=== PATIENT | female | born 1995 | race Caucasian/White ===

== ENCOUNTER 2022-03-31 11:10 | Emergency (ER) | payer OTHER, SELFPAY ==
[2022-03-31 11:37] VITALS: BP 112/76; PULSE 85; RESP 18; TEMP 36.8; O2SAT 100; BMI 21.0
--- NOTE | 2022-03-31 12:10 | ED.CHESTPAIN ---
HPI - Chest Pain General Date Seen: 03/31/22 Chief Complaint: Chest Pain Stated Complaint: Chest pain/left arm pain/shortness of breath Time Seen by Provider: 03/31/22 11:19 Source: patient Mode of arrival: ambulatory Limitations: no limitations History of Present Illness HPI narrative: 26-year-old female presents here to the emergency room for evaluation of chest pain. The chest pain is left-sided, it has been for 3 weeks, intermittent to continuous, made worse by sitting still, not made worse by movement or exercising. She notices it radiates to her left arm, to her elbow. Not associated with shortness of breath, no nausea, no vomiting. Correlates with her starting her new job at [employer], and also stopping her Effexor because she could no for this. No history is of falls trauma, no vomiting, no cough, no fevers chills or other issues. Has not really tried any medication for this, does have a known history of anxiety, and wonders if this is what is causing her issues. No history of illicit drug or alcohol use. Does vape, over the last couple years. No family history of premature coronary artery disease. Denies a history of contraceptive use, no history of . MD complaint: chest pain Onset (ago): week(s) Timing of current episode: episodic and constant Prior episodes: Yes Onset: during rest Pain location: left chest Pain radiation: left arm, left shoulder and left scapula Severity: moderate Quality: aching Relieving factors: movement Exacerbating factors: stress Treatment prior to arrival: none Risk Factors Coronary artery disease risk factors: none Thoracic aortic dissection risk factors: none Related Data On Oral Contraceptives: No Home Medications Medication Instructions Recorded Confirmed venlafaxine 75 mg tablet 75 mg PO DAILY 03/31/22 03/31/22 Previous Rx's Medication Instructions Recorded venlafaxine 150 mg 150 mg PO QAM #30 caps 03/31/22 capsule,extended release 24 hr (Effexor XR) venlafaxine 75 mg capsule,extended 75 mg PO QAM #30 caps 03/31/22 release 24 hr (Effexor XR) Allergies Allergy/AdvReac Type Severity Reaction Status Date / Time Penicillins Allergy Severe Anaphylaxis Verified 03/31/22 11:51 Sulfa (Sulfonamide Allergy Intermediate stomach Verified 03/31/22 11:51 Antibiotics) bleeding sertraline [From Zoloft] Allergy Mild sores on Verified 03/31/22 11:51 face Review of Systems Status of ROS Reports: 10 or more systems reviewed and unremarkable except as noted in History and below [facility] Medical History No significant past medical history Surgical History No significant past surgical history Social History Non-prescribed substance use: denies use Exam Narrative Exam Narrative: Patient appears in no apparent distress, nontoxic, pupils equal round reactive to light there is no scleral icterus redness, TMs are normal, oropharynx normal, neck is supple full range of motion without meningismus there is no lymphadenopathy anterior posterior chains, and there is 3-12, are normal Thyroid normal midline palpable, not enlarged, chest is clear bilaterally no wheezing crackles noted, heart sounds are normal, no clicks murmurs or gallops, abdomen is soft and scaphoid there is no guarding no past with no megaly moves all extremities independently well, negative for peripheral edema, negative for positive Homans sign, strength both proximal distal is normal common upper lower extremities, skin notes no rashes, and peripheral pulses are normal Const Vital Signs, click to edit/add: Vital Signs - 24 hr 03/31/22 11:37 03/31/22 13:46 03/31/22 14:32 Temperature 98.2 F Pulse Rate [Right Pulse Oximeter] 85 78 100 Respiratory Rate 18 16 16 Blood Pressure [Right Upper Arm] 112/76 135/90 H 127/86 Pulse Oximetry 100 96 Oxygen Delivery Method Room Air Room Air Documenting provider has reviewed patient's vital signs: yes Course Course Hospital Course: I discussed with her that her tests were all normal, her chest x-ray is normal are EKG was normal. This is very reassuring, we talked about the chest pain causes which with the here I think is more of a somatic/chest wall, I think we ruled out all the severe causes of her chest pain. This stress that she is under can cause chest pain, and I recommend she restart her Effexor common I will give her 30 day supply of the 225 mg per day. Follow-up with the primary care physician and I have named a couple of them on her discharge. I would recommend if she develops suicidal ideation, homicidal ideation that she return, she was comfortable with this. Vital Signs Vital signs: Initial Vital Signs Temperature 98.2 F 03/31/22 11:37 Temperature Source Temporal Artery Scan 03/31/22 11:37 Pulse Rate 85 03/31/22 11:37 Pulse Rhythm 03/31/22 11:37 Respiratory Rate 18 03/31/22 11:37 Blood Pressure 112/76 03/31/22 11:37 Blood Pressure Mean 88 03/31/22 11:37 Blood Pressure Position Sitting 03/31/22 11:37 Pulse Oximetry 100 03/31/22 11:37 Oxygen Delivery Method 03/31/22 11:37 Vital Signs Temperature 98.2 F 03/31/22 11:37 Pulse Rate 85 03/31/22 11:37 Respiratory Rate 18 03/31/22 11:37 Blood Pressure 112/76 03/31/22 11:37 Pulse Oximetry 100 03/31/22 11:37 Oxygen Delivery Method 03/31/22 11:37 Temperature 98.2 F 03/31/22 11:37 Pulse Rate 100 03/31/22 14:32 Respiratory Rate 16 03/31/22 14:32 Blood Pressure 127/86 03/31/22 14:32 Pulse Oximetry 96 03/31/22 14:32 Oxygen Delivery Method 03/31/22 14:32 MDM - Chest Pain MDM Narrative Medical decision making narrative: During the evaluation of this patient I considered multiple differential diagnosis is. The life-threatening differential diagnosis include coronary disease/VT, pulmonary embolism, pneumothorax, pneumonia, and aortic dissection. Other differential diagnosis included but were not limited to pericarditis, myocarditis, chest wall pain, GERD, esophageal rupture, rib fracture contusion, pleurisy, as well as other etiologies. Medical Records Data Attestation: I reviewed the patient's medical records. Lab Data Attestation: I reviewed the patient's lab results. Labs: Lab Results 03/31/22 03/31/22 03/31/22 Range/Units 12:30 12:40 12:40 WBC 5.41 (4.50-11.00) K/uL RBC 4.38 (4.00-5.20) m/uL Hgb 13.8 (12.0-16.0) gm/dL Hct 41.8 (33.0-51.0) % MCV 95 (80-100) fL MCH 32 (26-34) pg MCHC 33 (32-36) gm/dL RDW Coeff of Haja 11.9 (11.5-15.5) % Plt Count 464 H (140-440) K/uL Neut % (Auto) 59.7 (42.0-72.0) % Lymph % (Auto) 30.5 (20-44) % [place] % (Auto) 7.6 (0.0-11.0) % Eos % (Auto) 1.1 (0.0-7.0) % Baso % (Auto) 0.9 (0.0-3.0) % Neut # (Auto) 3.23 (1.7-7.0) K/uL Lymph # (Auto) 1.65 (0.90-2.90) K/uL [place] # (Auto) 0.40 (0.00-0.90) K/UL Eos # (Auto) 0.06 (0.00-0.50) K/uL Baso # (Auto) 0.05 (0.00-0.30) K/uL Abs Immat Gran (auto) 0.01 (0.00-0.30) K/uL D-Dimer Quant (PE/DVT) < 0.27 (0.00-0.50) ug/ml Sodium (135-149) mmol/L Potassium (3.6-5.1) mmol/L Chloride (96-114) mmol/L Carbon Dioxide (20-32) mmol/L BUN (5-24) mg/dL Creatinine (0.5-1.5) mg/dL Estimated Creat Clear Estimated GFR ml/min Glucose (60-115) mg/dL Calcium (8.4-10.6) mg/dL NT-Pro-B Natriuret Pep (0-125) PG/mL SARS-CoV-2 (PCR) Negative SARS-CoV-2 (Negative) Influenza Type A (PCR) Negative PCR FLU A (Negative) Influenza Type B (PCR) Negative PCR FLU B (Negative) RSV (PCR) Negative PCR RSV (Negative) POC Troponin I (0.01-0.04) ng/ml 03/31/22 03/31/22 Range/Units 12:40 12:40 WBC (4.50-11.00) K/uL RBC (4.00-5.20) m/uL Hgb (12.0-16.0) gm/dL Hct (33.0-51.0) % MCV (80-100) fL MCH (26-34) pg MCHC (32-36) gm/dL RDW Coeff of Haja (11.5-15.5) % Plt Count (140-440) K/uL Neut % (Auto) (42.0-72.0) % Lymph % (Auto) (20-44) % [place] % (Auto) (0.0-11.0) % Eos % (Auto) (0.0-7.0) % Baso % (Auto) (0.0-3.0) % Neut # (Auto) (1.7-7.0) K/uL Lymph # (Auto) (0.90-2.90) K/uL [place] # (Auto) (0.00-0.90) K/UL Eos # (Auto) (0.00-0.50) K/uL Baso # (Auto) (0.00-0.30) K/uL Abs Immat Gran (auto) (0.00-0.30) K/uL D-Dimer Quant (PE/DVT) (0.00-0.50) ug/ml Sodium 138 (135-149) mmol/L Potassium 3.7 (3.6-5.1) mmol/L Chloride 100 (96-114) mmol/L Carbon Dioxide 29 (20-32) mmol/L BUN 9 (5-24) mg/dL Creatinine 0.7 (0.5-1.5) mg/dL Estimated Creat Clear 113.37 Estimated GFR 122 ml/min Glucose 73 (60-115) mg/dL Calcium 9.2 (8.4-10.6) mg/dL NT-Pro-B Natriuret Pep 30 (0-125) PG/mL SARS-CoV-2 (PCR) (Negative) Influenza Type A (PCR) (Negative) Influenza Type B (PCR) (Negative) RSV (PCR) (Negative) POC Troponin I 0.00 L (0.01-0.04) ng/ml Imaging Data Chest x-ray: Attestation: I have reviewed the pertinent imaging results. My impression: Negative acute Radiologist's impression: Patient: PRIYANK GALLEGOS Facility:?[facility] Patient ID:?[id number] Site Patient ID:?[id number]. Site :?[id number] Study:?XRay Chest 2 VIEW-03/31/2022 1:53:23 PM Ordering Physician:Sukumar Haney Final Report: INDICATION: Chest pain TECHNIQUE: Chest radiograph 2 views COMPARISON: None FINDINGS: Mediastinum: The mediastinum is normal in appearance. The heart silhouette is normal in size and morphology. Lung: Both lungs are unremarkable in appearance. No sign of pleural effusion seen. No pneumothorax is identified. Bone and Soft tissue: Unremarkable for age. IMPRESSION: 1. No acute cardiopulmonary disease is seen. Dictated by: aJren Stroud MD @ 03/31/2022 13:53:47 (Electronic Signature) ECG Data Attestation: I personally reviewed and interpreted this ECG as follows: ECG interpretation date: 03/31/22 Prior ECG tracings: not available for review Interpretation: Nonspecific ST wave changes with flattening laterally inferiorly, but also throughout the precordium, normal sinus rhythm, sinus arrhythmia, ventricular rate 72, normal QRS, QT, NC interval Discharge Plan Discharge Clinical Impression: Anxiety, Chest pain Patient Disposition: Home, Self-Care Condition: Stable Instructions: Noncardiac Chest Pain (ED), Anxiety (ED), Chest Wall Pain (ED) Additional Instructions: Home rest, reassurance given, so restarting your Effexor, follow-up with primary care, couple good local primary care physicians include referrals given at the end of this note. Return as needed, or if you feel that you are becoming either suicidal homicidal or other psychiatric issues also. Is really normal to manifest somatic symptoms such as chest pain with increased stress and anxiety. Prescriptions: New venlafaxine [Effexor XR] 75 mg capsule,extended release 24hr 75 mg PO QAM Qty: 30 0RF venlafaxine [Effexor XR] 150 mg capsule,extended release 24hr 150 mg PO QAM Qty: 30 2RF No Action venlafaxine 75 mg tablet 75 mg PO DAILY Follow Up/Referrals: Parag Martínez MD [Staff Physician] - Ani Michaels DO [Staff Physician] - Stand Alone Forms: [employer] Info Instructions
--- NOTE | 2022-03-31 12:11 | CRLHL7_ITS ---
For Patients: As a result of the Cures Act, medical imaging exams and procedure reports are released immediately into your electronic medical record. You may view this report before your referring provider. If you have questions, please contact your health care provider. INDICATION: Chest pain TECHNIQUE: Chest radiograph 2 views COMPARISON: None FINDINGS: Mediastinum: The mediastinum is normal in appearance. The heart silhouette is normal in size and morphology. Lung: Both lungs are unremarkable in appearance. No sign of pleural effusion seen. No pneumothorax is identified. Bone and Soft tissue: Unremarkable for age. IMPRESSION: 1. No acute cardiopulmonary disease is seen. Dictated by: Jaren Stroud MD @ 03/31/2022 13:53:47 (Electronically Signed)
[2022-03-31 12:54] LABS: Basophils Absolute Auto 0.05 K/uL (0.00-0.30); Basophils Percent Auto 0.9 % (0.0-3.0); Eosinophils Absolute Auto 0.06 K/uL (0.00-0.50); Eosinophils Percent Auto 1.1 % (0.0-7.0); Hematocrit 41.8 % (33.0-51.0); Hemoglobin* 13.8 gm/dL (12.0-16.0); Immature Granulocytes Abs Auto 0.01 K/uL (0.00-0.30); Lymphocytes Absolute Auto 1.65 K/uL (0.90-2.90); Lymphocytes Percent Auto 30.5 % (20-44); Mean Corpuscular HGB Conc 33 gm/dL (32-36); Mean Corpuscular Hemoglobin 32 pg (26-34); Mean Corpuscular Volume 95 fL (80-100); Monocytes Percent Auto 7.6 % (0.0-11.0); Neutrophils Absolute Auto 3.23 K/uL (1.7-7.0); Neutrophils Percent Auto 59.7 % (42.0-72.0); Platelet Count* 464 K/uL (140-440); RDW Coefficient of Variation % 11.9 % (11.5-15.5); Red Blood Count 4.38 m/uL (4.00-5.20); White Blood Count* 5.41 K/uL (4.50-11.00)
[2022-03-31 13:04] LABS: Slide Review Reflex No
[2022-03-31 13:08] LABS: Chloride* 100 mmol/L (96-114); Potassium* 3.7 mmol/L (3.6-5.1); Sodium* 138 mmol/L (135-149)
[2022-03-31 13:11] LABS: Carbon Dioxide* 29 mmol/L (20-32); Creatinine* 0.7 mg/dL (0.5-1.5); Est. Creatinine Clearance* 113.37; Estimated Glomerular Filt Rate 122 ml/min
[2022-03-31 13:12] LABS: Blood Urea Nitrogen* 9 mg/dL (5-24); Calcium* 9.2 mg/dL (8.4-10.6); Glucose* 73 mg/dL (60-115)
[2022-03-31 13:21] LABS: NT Pro B Type NatriureticPept* 30 PG/mL (0-125)
[2022-03-31 13:32] LABS: PCR FLU A Negative PCR FLU A (Negative); PCR FLU B Negative PCR FLU B (Negative); PCR RSV Negative PCR RSV (Negative)
[2022-03-31 13:44] LABS: SARS PCR* Negative SARS-CoV-2 (Negative)
--- NOTE | 2022-03-31 13:44 | ED.NURSE ---
Dr. Hilton heredia with no test. Patient doesnt want test. States she has her period right now.
[2022-03-31 13:46] VITALS: BP 135/90; PULSE 78; RESP 16
[2022-03-31 13:52] LABS: D Dimer Quantitative* < 0.27 ug/ml (0.00-0.50)
--- NOTE | 2022-03-31 14:06 | ED.NURSE ---
Pt to imaging.
[2022-03-31 14:32] VITALS: BP 127/86; PULSE 100; RESP 16; O2SAT 96
== END 2022-03-31 14:57 | disposition home or self-care (01) ==
PROVIDERS: Emergency Provider Family Medicine
DX: F41.9 Anxiety disorder, unspecified (principal); R07.9 Chest pain, unspecified
CPT/HCPCS: 36415; 71046; 80048; 83880; 84484; 84703; 85025; 85379; 87502; 87634; 87635; 93005; 99284; 99285

== ENCOUNTER 2022-06-25 16:07 | Emergency (ER) | payer OTHER, SELFPAY ==
[2022-06-25 16:15] VITALS: BP 112/87; PULSE 100; RESP 14; TEMP 36.7; O2SAT 100; BMI 21.8
--- NOTE | 2022-06-25 16:18 | ED_ITS ---
HPI - Female Genitourinary General Time Seen by Provider: 16:18 Date Seen: 06/25/22 Chief complaint: Urogenital Problems, Female Stated complaint: Bladder Infection - Lost Prescription Time Seen by Provider: 06/25/22 16:09 Source: patient and RN notes reviewed Mode of arrival: ambulatory Limitations: no limitations History of Present Illness HPI Narrative: Patient is a 27-year-old female coming in with complaint of urinary tract symptoms and loss of her current antibiotic prescription. She was diagnosed at an urgent care in [place] with urinary tract symptoms, given Macrobid. She states the nurse practitioner told her that she would call if the urine culture necessitated any change in antibiotics. She had completed 2 days, is still noticing a little blood in urine but the pain with urination has gone away. She does not think she has had fevers but at times she has felt warm. There has been no nausea or vomiting. No abdominal pain. She could not find her antibiotic today. She has had allergies to penicillin and sulfa. She works in [place] and lives in [place]. She is currently menstruating, no chance of per patient. Related Data Home Medications Medication Instructions Recorded Confirmed venlafaxine 75 mg tablet 75 mg PO DAILY 03/31/22 03/31/22 Previous Rx's Medication Instructions Recorded venlafaxine 150 mg 150 mg PO QAM #30 caps 03/31/22 capsule,extended release 24 hr (Effexor XR) venlafaxine 75 mg capsule,extended 75 mg PO QAM #30 caps 03/31/22 release 24 hr (Effexor XR) Allergies Allergy/AdvReac Type Severity Reaction Status Date / Time Penicillins Allergy Severe Anaphylaxis Verified 03/31/22 11:51 Sulfa (Sulfonamide Allergy Intermediate stomach Verified 03/31/22 11:51 Antibiotics) bleeding sertraline [From Zoloft] Allergy Mild sores on Verified 03/31/22 11:51 face Review of Systems Narrative: As per HPI PFSH PFSH Medical History No significant past medical history Surgical History No significant past surgical history Social History Smoking Status: Unknown if ever smoked Non-prescribed substance use: denies use service: No Exam Const: Vital Signs, click to edit/add: Vital Signs - 24 hr 06/25/22 16:15 Temperature 98.1 F Pulse Rate [Right Pulse Oximeter] 100 Respiratory Rate 14 Blood Pressure [Ri ght Upper Arm] 112/87 Pulse Oximetry 100 Oxygen Delivery Me thod Room Air Documenting provider has reviewed patient's vital signs: yes Common normals: no apparent distress, average body habitus, oriented x3, no limitatio ns, healthy appearing, alert and well nourished General appearance: cooperative, comfortable, well kempt and well developed HENMT: Common normals: normocephalic and head/scalp atraumatic Head and scalp: normocephalic and atraumatic Eye: Common normals: PERRL, EOMs intact bilaterally, conjunctivae normal and no scleral icterus Conjunctiva: conjunctiva(e) normal Pupil: PERRL Resp: Common normals: normal respiratory effort, no retractions, no use of accessory muscles and clear to auscultation bilaterally Auscultation: clear to auscultation bilaterally Cardio: Common normals: regular rate, regular rhythm, S1 normal heart sound, S2 normal heart sound, no gallops, no clicks and no murmurs Rate: regular rate Rhythm: regular rhythm Heart sounds: S1 normal and S2 normal GI: Common normals: Normal to inspection, nondistended, normoactive bowel sounds present, soft to palpation, non-tender, no hepatosplenomegaly and no masses Palpation: soft and no hepatosplenomegaly : Common normals: no CVA tenderness Bladder/kidney exam: no CVA tenderness Back & Pelvis: Common normals: no CVA tenderness Neuro: Common normals: oriented x3 Sensorium/orientation: alert Psych: Appearance: well kempt Course Course Hospital Course: Patient and I discussed getting her a new prescription of Macrobid verses rechecking urinalysis to ensure that she is adequately resolving. We discussed pros and cons. She feels comfortable just proceeding with the Macrobid and states she overall is improving. I do think this is a reasonable approach. Reviewed with her that no pharmacies are open in town today as it is Thanksgiving. She will have to get a prescription from [facility]. Vital Signs Vital signs: Initial Vital Signs Temperature 98.1 F 06/25/22 16:15 Temperature Source Temporal Artery Scan 06/25/22 16:15 Pulse Rate 100 06/25/22 16:15 Respiratory Rate 14 06/25/22 16:15 Blood Pressure 112/87 06/25/22 16:15 Blood Pressure Mean 95 06/25/22 16:15 Blood Pressure Position Sitting 06/25/22 16:15 Pulse Oximetry 100 06/25/22 16:15 Oxygen Delivery Method 06/25/22 16:15 Vital Signs Temperature 98.1 F 06/25/22 16:15 Pulse Rate 100 06/25/22 16:15 Respiratory Rate 14 06/25/22 16:15 Blood Pressure 112/87 06/25/22 16:15 Pulse Oximetry 100 06/25/22 16:15 Oxygen Delivery Method 06/25/22 16:15 Temperature 98.1 F 06/25/22 16:15 Pulse Rate 100 06/25/22 16:15 Respiratory Rate 14 06/25/22 16:15 Blood Pressure 112/87 06/25/22 16:15 Pulse Oximetry 100 06/25/22 16:15 Oxygen Delivery Method 06/25/22 16:15 Critical Care Time Critical Care Time Critical Care Time: No Discharge Plan Discharge Clinical Impression: Urinary tract infection Patient Disposition: Home, Self-Care Condition: Stable Instructions: Urinary Tract Infection in Women (ED) Additional Instructions: Take the Macrobid as prescribed to complete the 7 day course. Push fluids. If you are not completely improved by the end of your treatment course, develops increasing symptoms or worsening symptoms at any point, do need to seek re- evaluation. Activity Level: No Restrictions Discharge Diet: Regular Prescriptions: No Action venlafaxine 75 mg tablet 75 mg PO DAILY venlafaxine [Effexor XR] 75 mg capsule,extended release 24hr 75 mg PO QAM Qty: 30 0RF venlafaxine [Effexor XR] 150 mg capsule,extended release 24hr 150 mg PO QAM Qty: 30 2RF Follow Up/Referrals: Provider,Not a Local [Primary Care Provider] - Stand Alone Forms: [employer] Info Instructions
--- OUTSIDE RECORDS SUMMARY | 2022-06-25 16:40 | XMS_ITS | Encounter Summary ---
:1995 Author Organization [facility] Address [address] [place] [address] Care Team Providers Name Role Phone Elsewhere, Pcp Primary Care Provider Unavailable Encounter Details Date Type Department Care Team Description 05/06/2022 - Emergency [facility] Suicide Ideation 05/07/[address] (Primary Dx) SHAILESH HANEY [id number] Social History Tobacco Use Types Packs/Day Years Used Date Smoking Tobacco: Heavy Smoker Cigarettes 0.5 Smokeless Tobacco: Never Alcohol Use Standard Drinks/Week Comments Yes 2 (1 standard drink = 0.6 oz pure alcoho l) Sex Assigned at Date Recorded Not on file documented as of this encounter Medications at Time of Discharge Medication Sig Dispensed Refills Start Date End Date ibuprofen (ADVIL,MOTRIN) Take 1 tablet (600 mg 24 tablet 1 03/26/2020 600 mg tablet total) by mouth every 6 (six) hours as needed for pain for up to 24 doses. venlafaxine XR Take 150 mg by mouth 0 12/28/2019 (EFFEXOR-XR) 150 mg 24 hr daily. capsule documented as of this encounter Plan of Treatment Not on filedocumented as of this encounter Visit Diagnoses Diagnosis Suicide Ideation - Primary documented in this encounter Care Teams Deck[employer] Relationship Specialty Start Date End Date Elsewhere, Pcp PCP - General Family Medicine 03/28/20 documented as of this encounter
--- OUTSIDE RECORDS SUMMARY | 2022-06-25 16:40 | XMS_ITS | Encounter Summary ---
:1995 Author Organization [facility] Address [address] [place] [address] Care Team Providers Name Role Phone Elsewhere, Pcp Primary Care Provider Unavailable Reason for Visit Reason Comments Abdominal Pain Pt arrives from work c/o abd ominal pain, chest pain and low abdominal pain on right side. Addition ally she feels weak and dizzy. Pt symptoms x 2 weeks ago and has been s een in clinic x2 since. Encounter Details Date Type Department Care Team Description 05/30/[address] [facility] Sandra Rivero, [facility] [address] [address] [place] [address] [place], [place] [id number] (Wo rk) Social History Tobacco Use Types Packs/Day Years Used Date Smoking Tobacco: Heavy Smoker Cigarettes 0.5 Smokeless Tobacco: Never Alcohol Use Standard Drinks/Week Comments Yes 2 (1 standard drink = 0.6 oz pure alcoho l) Sex Assigned at Date Recorded Not on file documented as of this encounter Last Filed Vital Signs Vital Sign Reading Time Taken Comments Blood Pressure 148/85 05/30/2022 3:55 PM CDT Pulse 110 05/30/2022 3:55 PM CDT Temperature 37.4 ??C (99.3 ??F) 05/30/2022 3:55 PM CDT Respiratory Rate 18 05/30/2022 3:55 PM CDT Oxygen Saturation 100% 05/30/2022 3:55 PM CDT Inhaled Oxygen Concentration - - Weight 61.2 kg (134 lb 14.7 oz) 05/30/2022 3:57 PM CDT Height 167.6 cm (5' 6) 05/30/2022 3:57 PM CDT Body Mass Index 21.78 05/30/2022 3:57 PM CDT documented in this encounter Medications at Time of Discharge [...] as of this encounter Plan of Treatment Scheduled Orders Name Type Priority Associated Diagnoses Order S chedule ECG 12 Lead ECG STAT Once for 1 Occu rrences starting 05/30/2022 unti l 05/30/2022 documented as of this encounter Visit Diagnoses Not on filedocumented in this encounter Care Teams Wrapper Sizer Relationship Specialty Start Date End Date Elsewhere, Pcp PCP - General Family Medicine 03/28/20 documented as of this encounter
--- OUTSIDE RECORDS SUMMARY | 2022-06-25 16:40 | XMS_ITS | Clinical Summary ---
:1995 Author Organization [facility] Address [address] [place] [address] Care Team Providers Name Role Phone Elsewhere, Pcp Primary Care Provider Unavailable Source Comments Patient records contain information from all sites at [facility]. For routine questions regarding patient records, call [phone] during business hours, M-F 8:00 AM - 5:00 PM Central Time. Record requests for emergency care only can be directed to [phone] at any time.[facility] Allergies Active Allergy Reactions Severity Noted Date Comments Penicillins Hives, Anaphylaxis High 10/22/2007 Other andrea ction(s): *Unknown - Chil dhood Rxn Sertraline Rash, Myalgia Low 03/31/2022 Sores on face Sulfa (Sulfonamide Diarrhea, GI bleeding High 03/31/2022 Antibiotics) Medications Medication Sig Dispensed Refills Start Date End Date Status LORazepam (ATIVAN) Take 1 tablet (1 mg 9 tablet 0 12/02/2018 Active 1 mg tablet total) by mouth 3 (three) times a day as needed for anxiety for up to 3 days. ibuprofen Take 1 tablet (600 mg 24 tablet 1 03/26/2020 Active (ADVIL,MOTRIN) 600 total) by mouth every mg tablet 6 (six) hours as needed for pain for up to 24 doses. venlafaxine XR Take 150 mg by mouth 0 12/28/2019 Active (EFFEXOR-XR) 150 daily. mg 24 hr capsule EPINEPHrine 0.3 Inject 0.3 mL (0.3 mg 2 each 1 07/23/2020 Active mg/0.3 mL total) intramuscularly injection syringe as needed for anaphylaxis for up to 10 days. Inject into the thigh. Active Problems Problem Noted Date Fracture Radius Head Closed Initial Left 04/01/2020 Encounters Date Type Specialty Care Team Description 05/30/2022 Emergency Emergency Medicine Sandra Rivero P.A.-C. 05/06/2022 - Emergency Suicide Ideatio n 05/07/2022 (Primary Dx) from Last 3 Months Social History Tobacco Use Types Packs/Day Years Used Date Smoking Tobacco: Heavy Smoker Cigarettes 0.5 Smokeless Tobacco: Never Alcohol Use Standard Drinks/Week Comments Yes 2 (1 standard drink = 0.6 oz pure alcoho l) Sex Assigned at Date Recorded Not on file Last Filed Vital Signs Vital Sign Reading [...] Mass Index 21.78 05/30/2022 3:57 PM CDT Plan of Treatment Health Maintenance Due Date Last Done Comments Cervical Cancer Screening 1995 HIV Screening 1995 Hepatitis B Vaccines (1 of 3 - 3-dose 1995 series) Hepatitis C Screening 1995 Tobacco Cessation counseling 1995 Pneumococcal vaccine (0-64 years) (1 - 2001 PCV) COVID-19 Vaccine (3 - Booster for Moderna 10/30/20202020, 08/07/2020 series) Depression Screening (Annual PHQ-2) 08/02/2021 DTaP,Tdap,and Td Vaccines (3 - Td or Tdap) 08/30/202608/30, 03/17/2007 Influenza Vaccine Completed 05/07/2022, 06/07/2019 Insurance Payer Benefit Plan Subscriber ID Effective Dates Phone Address Type / Group [facility] [id number] 2021-[facility] [phone] [address] Indemnity t [address] [place] [address] [address] [place] [address] Care Teams Applications Architect Relationship Specialty Start Date End Date Elsewhere, Pcp PCP - General Family Medicine 03/28/20
--- OUTSIDE RECORDS SUMMARY | 2022-06-25 16:40 | XMS_ITS | Encounter Summary ---
:1995 Author Organization [facility] Address [address] [place] [address] Care Team Providers Name Role Phone Elsewhere, Pcp Primary Care Provider Unavailable Reason for Referral Outpatient (Routine) - Closed Specialty Diagnoses / Procedures Referred By Contact Refer red To Contact Emergency Medicine Diagnoses Reaction Allergic Initial Herminio Murphy M.D. [address] [phone] Referral ID Status Reason Start Date Expiration Date Visits Requ ested Visits Authorized [id number] Closed 07/23/2020 07/23/2021 1 1 Scheduling Instructions [facility] will contact you to schedule an appointment. 2 SYSTEMS PROGRAMMER Reason for Visit Reason Comments Allergic Reaction pt present with possible all ergic reaction, pt reports hives to face and bilateral arm, star lala 1700 and have progressively gotten worse. pt reports her throat feels tight, denies new meds Encounter Details Date Type Department Care Team Description 07/23/2020 Emergency [facility] Herminio Murphy React ion Allergic System Filiberto Sims Initial (Primary Dx) Emergency Department [address] [place] [id number] Social History Tobacco Use Types Packs/Day Years Used Date Smoking Tobacco: Heavy Smoker Cigarettes 0.5 Smokeless Tobacco: Never Alcohol Use Standard Drinks/Week Comments Yes 2 (1 standard drink = 0.6 oz pure alcoho l) Sex Assigned at Date Recorded Not on file documented as of this encounter Last Filed Vital Signs Vital Sign Reading Time Taken Comments Blood Pressure 131/82 07/23/2020 11:00 PM DB2 SYSTEMS PROGRAMMER Pulse 111 07/23/2020 11:00 PM DB2 SYSTEMS PROGRAMMER Temperature 37 ??C (98.6 ??F) 07/23/2020 8:01 PM DB2 SYSTEMS PROGRAMMER Respiratory Rate 22 07/23/2020 11:00 PM DB2 SYSTEMS PROGRAMMER Oxygen Saturation 98% 07/23/2020 11:00 PM DB2 SYSTEMS PROGRAMMER Inhaled Oxygen Concentration - - Weight 59.9 kg (132 lb 0.9 oz) 07/23/2020 8:02 PM DB2 SYSTEMS PROGRAMMER Height - - Body Mass Index 22.66 05/01/2020 9:54 AM CDT documented in this encounter Medications at Time of Discharge Medication Sig Dispensed Refills Start Date End Date ibuprofen Take 1 tablet (600 mg 24 tablet 1 03/26/2020 (ADVIL,MOTRIN) 600 mg total) by mouth every 6 tablet (six) hours as needed for pain for up to 24 doses. venlafaxine XR Take 150 mg by mouth 0 12/28/2019 (EFFEXOR-XR) 150 mg daily. 24 hr capsule EPINEPHrine 0.3 Inject 0.3 mL (0.3 mg 2 each 1 0 mg/0.3 mL injection total) intramuscularly syringe as needed for anaphylaxis for up to 10 days. Inject into the thigh. predniSONE Take 2 tablets (40 mg 20 tablet 0 07/23/202008/2020 (DELTASONE) 20 mg total) by mouth daily tablet for 10 days. documented as of this encounter ED Notes Herminio Murphy M.D. - 07/23/2020 11:20 PM CST Images from the original note were not included. SUBJECTIVE: CHIEF COMPLAINT/REASON FOR VISIT: Allergic Reaction (pt present with possible allergic reaction, pt reports hives to face and bilateral arm, started 1700 and have progressively gotten worse. pt reports her throat feels tight, denies new meds) HISTORY OF PRESENT ILLNESS: Snehal Bryant is a 25 y.o. female with history of was reaction to peanuts, denies any exposure peanuts today, but feels she is having allergic reaction, has 1 urticarial hives on her left forearm aswell as subjective scratches and fullness over throat, no other environmental exposure. PAST MEDICAL/FAMILY/SOCIAL HISTORY: Medical History: History reviewed. No pertinent past medical history. Patient Active Problem List Diagnosis Date Noted ??? Fracture Radius Head Closed Initial Left 04/01/2020 Surgical History: History reviewed. No pertinent surgical history. Family History: Reviewed in chart Social History: Social History Socioeconomic History ??? Marital status: Single Spouse name: None ??? Number of children: None ??? Years of education: None ??? Highest education level: None Occupational History ??? None Social Needs ??? Financial resource strain: None ??? Food insecurity Worry: None Inability: None ??? Transportation needs Medical: None Non-medical: None Tobacco Use ??? Smoking status: Heavy Tobacco Smoker Packs/day: 0.50 ??? Smokeless tobacco: Never Used Substance and Sexual Activity ??? Alcohol use: Yes Alcohol/week: 2.0 standard drinks Types: 2 Glasses of wine per week ??? Drug use: No ??? Sexual activity: Defer Lifestyle ??? Physical activity Days per week: None Minutes per session: None ??? Stress: None Relationships ??? Social connections Talks on phone: None Gets together: None Attends adventist service: None Active member of club or organization: None Attends meetings of clubs or organizations: None Relationship status: None ??? Intimate partner violence Fear of current or ex partner: None Emotionally abused: None Physically abused: None Forced sexual activity: None Other Topics Concern ??? None Social History Narrative ??? None Social History Substance and Sexual Activity Alcohol Use Yes ??? Alcohol/week: 2.0 standard drinks ??? Types: 2 Glasses of wine per week Social History Substance and Sexual Activity Drug Use No REVIEW OF SYSTEMS: Constitutional: Negative for diaphoresis, fatigue and fever. HENT: Negative for congestion and trouble swallowing. Respiratory: Negative for chest tightness and shortness of breath. Cardiovascular: Positive for palpitations. Negative for chest pain. Gastrointestinal: Negative for abdominal pain. Genitourinary: Negative for dysuria and hematuria. Skin: Positive for rash. OBJECTIVE: INITIAL VITAL SIGNS: Initial Vitals Temperature Pulse Rate Heart Rate Resp Rate Blood Pressure SpO2 07/23/20200007/23/20200007/23/20 2045 07/23/20200007/23/20200007/23/20 2001 37 ??C (!) 143 108 20 (!) 150/104 99 % Pain Score 07/23/202001 2 PHYSICAL EXAMINATION: Constitutional: Nursing note and vitals reviewed. No distress. HENT: Head: Normocephalic. Mouth/Throat: Oropharynx is clear and moist. Mucous membranes are moist. Eyes: Conjunctivae are normal. Neck: Normal range of motion. Neck supple. Cardiovascular: Regular rhythm and normal heart sounds. Tachycardia present. Pulmonary/Chest: Effort normal and breath sounds normal. There is normal air entry. No tachypnea. Norespiratory distress. She has no wheezes. She exhibits no retraction. Abdominal: Soft and firm. Bowel sounds are normal. She exhibits no distension. There is no abdominaltenderness. There is no rebound and no guarding. Musculoskeletal: Normal range of motion. Neurological: She is alert and oriented to person, place, and time. Skin: Skin is warm and dry. She is not diaphoretic. Psychiatric: She has a normal mood and affect. Her behavior is normal. Judgment and thought content normal. @SCORINGTOOLS@ ASSESSMENT AND PLAN: Patient is tachycardic, has a single recurrent hyper left arm, there is no clinical oropharynx edemaor swelling. Is tachycardic to the 140s, but her blood pressure is maintained, hypertensive if anything Did give a dose of Benadryl and steroids, as well as IV fluids After several hours of observation, heart rate decreasing to around 100, well- appearing, no clinic with sinus for decompensation. Feel this being atypical presentation for true allergic reaction, but cannot explain her tachycardia. typically with allergic reaction, tachycardia is reflex to hypotension secondary to anaphylaxis, sothis is unusual as her blood pressure was maintained She was not given epi in the ED Last evaluation, well-appearing, did prescribe course of steroids for the unclear picture, as well as EpiPen to have at home. Counseled on use of EpiPen at home, and referred to Allergy immunology for follow-up ED COURSE: Final Diagnoses: as of Jul 24 1959 Reaction Allergic Initial DIAGNOSIS: Final diagnoses: [T78.40XA] Reaction Allergic Initial ED DISCHARGE MEDS: ED Prescriptions Medication Sig Dispense Start Date End Date Auth. Provider predniSONE (DELTASONE) 20 mg tablet Take 2 tablets (40 mg total) by mouth daily for 10 days. 20 tablet 07/23/2020 08/02/2020 Herminio Murphy M.D. EPINEPHrine 0.3 mg/0.3 mL injection syringe Inject 0.3 mL (0.3 mg total) intramuscularly as needed for anaphylaxis for up to 10 days. Inject into the thigh. 2 each 07/23/2020 08/02/2020 Herminio Murphy M.D. DISPOSITION: Home or Self Alf or Self Care Herminio Murphy M.D. 07/24/201958 2 SYSTEMS PROGRAMMER documented in this encounter Plan of Treatment Scheduled Referrals Name Type Priority Associated Order Schedule Diagnoses POST ED VISIT Outpatient Referral Routine Allergy Initial Expe cted: Allergy and 07/23/2020 Immunology (Approximate), Expires: 07/23/2023 documented as of this encounter Procedures Procedure Name Priority Date/Time Associated Diagnosis Comme nts CBC WITH STAT 07/23/2020 8:59 PM Results f or this DIFFERENTIAL, B DB2 SYSTEMS PROGRAMMER procedure ar e in the results section. BASIC METABOLIC STAT 07/23/2020 8:59 PM Result s for this PANEL, S/P DB2 SYSTEMS PROGRAMMER procedure are i n the results section. ECG STAT 07/23/2020 8:00 PM Results f or this DB2 SYSTEMS PROGRAMMER procedure are i n the results section. documented in this encounter Results Basic Metabolic Panel (07/23/2020 8:59 PM DB2 SYSTEMS PROGRAMMER) P athologist Signature Potassium, P 3.7 3.6 - 5.2 07/23/2020 [facility] mmol/L 9:29 PM DB2 SYSTEMS PROGRAMMER Sodium, P 137 135 - 145 07/23/2020 [facility] mmol/L 9:29 PM DB2 SYSTEMS PROGRAMMER Chloride, P 100 98 - 107 07/23/2020 [facility] mmol/L 9:29 PM DB2 SYSTEMS PROGRAMMER Bicarbonate, P 24 22 - 29 07/23/2020 [facility] mmol/L 9:29 PM DB2 SYSTEMS PROGRAMMER Anion Gap, P 13 7 - 15 07/23/2020 [facility] 9:29 PM DB2 SYSTEMS PROGRAMMER BUN (Blood Urea 9 6 - 21 07/23/2020 [facility] Nitrogen), P mg/dL 9:29 PM DB2 SYSTEMS PROGRAMMER Creatinine 0.68 0.59 - 07/23/2020 [facility] 1.04 mg/dL 9:29 PM DB2 SYSTEMS PROGRAMMER eGFR-Black/Afric >90 >=60 07/23/2020 [facility] an [place] mL/min/BSA 9:49 PM DB2 SYSTEMS PROGRAMMER Comment: ----ADDITIONAL INFORMATION---- Estimated GFR calculated using the 2009 CKD_EPI creatinine equation. eGFR Non-Black/ >90 >=60 mL/min/BSA 07/23/2020 9:49 PM DB2 SYSTEMS PROGRAMMER [facility] Comment: ----ADDITIONAL INFORMATION---- Estimated GFR calculated using the 2009 CKD_EPI creatinine equation. Calcium, Total, P 8.9 8.6 - 10.0 mg/dL 07/23/2020 9:29 PM DB2 SYSTEMS PROGRAMMER [facility] Glucose, P 100 70 - 140 mg/dL 07/23/2020 9:29 PM DB2 SYSTEMS PROGRAMMER M KTO Specimen Anatomical Collection Method Collection Time Receive d Time (Source) Location / / Volume Laterality Blood (Blood, 07/23/2020 8:59 PM 07/23/20 20 9:29 Venous) DB2 SYSTEMS PROGRAMMER PM DB2 SYSTEMS PROGRAMMER Herminio Murphy M.D. LAB BLOOD ADD-ON Performing Organization Address City/State/ZIP Code Phon e Number [facility]- [address] [place] [address] [place] [address] System [address] (ABNORMAL) CBC with Differential, Blood (07/23/2020 8:59 PM DB2 SYSTEMS PROGRAMMER) [facility] Method Time Signature Hemoglobin 12.8 11.6 - 07/23/2020 [facility] 15.0 g/dL 9:10 PM DB2 SYSTEMS PROGRAMMER Hematocrit 37.6 35.5 - 07/23/2020 [facility] 44.9 % 9:10 PM DB2 SYSTEMS PROGRAMMER Erythrocytes 3.98 3.92 - 07/23/2020 [facility] 5.13 9:10 PM DB2 SYSTEMS PROGRAMMER x10(12)/L MCV 94.5 78.2 - 07/23/2020 [facility] 97.9 fL 9:10 PM DB2 SYSTEMS PROGRAMMER RBC Distrib Width 11.8 (L) 12.2 - 07/23/2020 [facility] 16.1 % 9:10 PM DB2 SYSTEMS PROGRAMMER Platelet Count 346 157 - 371 07/23/2020 [facility] x10(9)/L 9:10 PM DB2 SYSTEMS PROGRAMMER Leukocytes 6.5 3.4 - 9.6 07/23/2020 [facility] x10(9)/L 9:10 PM DB2 SYSTEMS PROGRAMMER Neutrophils 4.28 1.56 - 07/23/2020 [facility] 6.45 9:10 PM DB2 SYSTEMS PROGRAMMER x10(9)/L Lymphocytes 1.65 0.95 - 07/23/2020 [facility] 3.07 9:10 PM DB2 SYSTEMS PROGRAMMER x10(9)/L Monocytes 0.46 0.26 - 07/23/2020 [facility] 0.81 9:10 PM DB2 SYSTEMS PROGRAMMER x10(9)/L Eosinophils 0.07 0.03 - 07/23/2020 [facility] 0.48 9:10 PM DB2 SYSTEMS PROGRAMMER x10(9)/L Basophils 0.06 0.01 - 07/23/2020 [facility] 0.08 9:10 PM DB2 SYSTEMS PROGRAMMER x10(9)/L Specimen Anatomical Collection Method Collection Time Receive d Time (Source) Location / / Volume Laterality Blood (Blood, 07/23/2020 8:59 PM 07/23/20 20 9:10 Venous) DB2 SYSTEMS PROGRAMMER PM DB2 SYSTEMS PROGRAMMER Herminio Murphy M.D. LAB BLOOD ADD-ON Performing Organization Address City/State/ZIP Code Phon e Number [facility]- [facility] [place] [address] [place] [address] System in [place] [address] [facility] ECG 12 Lead (07/23/2020 8:00 PM DB2 SYSTEMS PROGRAMMER) P athologist Signature Ventricular Rate 132 BPM MUSE ECG/Min [place] Interval 130 ms MUSE QRSD Interval 76 ms MUSE QT Interval 272 ms MUSE QTC Interval 403 ms MUSE P [place] 69 degrees MUSE R [place] 74 degrees MUSE T Wave [place] -6 degrees MUSE Specimen Anatomical Collection Method Collection Time Receive d Time (Source) Location / / Volume Laterality 07/23/2020 8:00 PM 0 8:07 DB2 SYSTEMS PROGRAMMER PM DB2 SYSTEMS PROGRAMMER Impressions MUSE - 07/23/2020 8:07 PM DB2 SYSTEMS PROGRAMMER Sinus tachycardia Nonspecific T wave abnormality When compared with ECG of 02-DEC-2018 02 :02, Premature supraventricular complexes are no longer present Reviewed by NAA Palomino Narrative This result has an attachment that is no t available. Procedure Note Luciano Schwarz M.D. - 07/23/2020Fo rmatting of this note might be different from the original. IMPRESSION: Sinus tachycardia Nonspecific T wave abnormality When compared with ECG of 02-DEC-2018 02 :02, Premature supraventricular complexes are no longer present Reviewed by NAA Palomino Isaac Naranjo M.D. ECG ORDERABLES Performing Organization Address City/State/ZIP Code Phon e Number MUSE MUSE NA documented in this encounter Visit Diagnoses Diagnosis Reaction Allergic Initial - Primary documented in this encounter Administered Medications Inactive Administered Medications - up to 3 most recent administrations Medication Order MAR Action Action Date Dose Rate Site diphenhydrAMINE injection 25 mg Given 07/23/2020 9:00 PM DB2 SYSTEMS PROGRAMMER 25 mg (BENADRYL) 25 mg, intravenous, Once, On e 07/23/20 at 2022, For 1 dose methylPREDNISolone sod succinate (PF) Given 07/23/2020 9:[address] 125 mg injection 125 mg (SOLU-Medrol) 125 mg, intravenous, Once, On Wed07/23/20 at 2022, For 1 dose, Activate vial to a final concentration of 62.5 mg/mL NaCl 0.9 % bolus 1,000 mL New Bag 07/23/2020 9:00 PM DB2 SYSTEMS PROGRAMMER 1,000 mL 1000 mL/hr 1,000 mL, intravenous, at 1,000 mL/hr, Administer over 1 Hours, Once, On Wed07/23/20 at 2022, For 1 dose documented in this encounter Active and Recently Administered Medications Times are shown in DB2 SYSTEMS PROGRAMMER. Scheduled Medication Order 07/21/2020 07/22/2020 07/23/2020 diphenhydrAMINE injection 25 mg (BENADRYL) (COMPLETED) 2100 (Given - Provider: Simin Elder RAlyse) 25 mg, intravenous, Once, On Wed07/23/20 at 2022, For 1 dose methylPREDNISolone sod succinate (PF) in jection 125 mg (SOLU-Medrol) (COMPLETED) 2100 (Given - Provid er: Simin Elder RKwesiNKwesi) 125 mg, intravenous, Once, On e at 2022, For 1 dose, Activate vial to a final concentration of 62.5 mg/mL NaCl 0.9 % bolus 1,000 mL (COMPLETED) 2100 (New Bag - Provider: Simin Elder RAlyse)221 (Stopped - Provider: Simin Elder R.N.) 1,000 mL, intravenous, at 1,000 mL/hr, A dminister over 1 Hours, Once, On Wed07/23/20 at 2022, For 1 dose documented in this encounter Care Teams Ring Making Machine Operator Relationship Specialty Start Date End Date Elsewhere, Pcp PCP - General Family Medicine 03/28/20 documented as of this encounter
--- OUTSIDE RECORDS SUMMARY | 2022-06-25 16:40 | XMS_ITS | Encounter Summary ---
:1995 Author Organization [facility] Address [address] [place] [address] Care Team Providers Name Role Phone Elsewhere, Pcp Primary Care Provider Unavailable Reason for Visit Reason Comments Follow-up Follow-up Outpatient (Routine) - Closed Specialty Diagnoses / Procedures Referred By Contact Refer red To Contact Orthopedic Surgery Damaso Robles D.O . [facility] Region [address] [place] [phone] Referral ID Status Reason Start Date Expiration Date Visits Requ ested Visits Authorized [id number] Closed 04/01/2020 04/01/2021 1 1 Encounter Details Date Type Department Care Team Description 05/01/2020 Office Visit Department of Damaso Robles, Amy buchanan Head Orthopedic Surgery in [place] Closed Initial Left [address] (Primary Dx) [address] [place] [phone] Social History Tobacco Use Types Packs/Day Years Used Date Smoking Tobacco: Heavy Smoker Cigarettes 0.5 Smokeless Tobacco: Never Alcohol Use Standard Drinks/Week Comments Yes 2 (1 standard drink = 0.6 oz pure alcoho l) Sex Assigned at Date Recorded Not on file documented as of this encounter Last Filed Vital Signs Vital Sign Reading Time Taken Comments Blood Pressure - - Pulse - - Temperature 36.8 ??C (98.2 ??F) 05/01/2020 9:54 AM CDT Respiratory Rate - - Oxygen Saturation - - Inhaled Oxygen Concentration - - Weight 58.8 kg (129 lb 10.1 oz) 05/01/2020 9:54 AM CDT Height 162.6 cm (5' 4.02) 05/01/2020 9:54 AM CDT Body Mass Index 22.24 05/01/2020 9:54 AM CDT documented in this encounter Progress Notes Damaso Robles D.O. - 05/01/2020 10:00 AM CDT SUBJECTIVE Pain reported: Site 1 Pain Score: 4, Pain Location: Elbow, Pain Orientation: Right, Pain Descriptors: Aching, Tightness, Clinical Progression: Gradually improving, (05/01/20 0953 : Shannen Delong, C.M.A.) CHIEF COMPLAINT / REASON FOR VISIT Snehal Bryant is a 25 y.o. female who presents for follow-up of Follow-up of the Left Elbow and Follow-up of the Right Elbow and is under the care of Primary Care Physician. HISTORY OF PRESENT ILLNESS Patient is 25-year-old female presenting today for re-evaluation of her elbows. We proceeded non operatively after bilateral radial head fractures that occurred on 03/26/2020. Today she has no new concerns. Left elbow is nearly pain free, and the right continues to improve. Her surgical history is notable for: No past surgical history on file. The following portions of the patient's history were reviewed and updated as appropriate: allergies,current medications, family history, medical history, social history, surgical history and problem list. REVIEW OF SYSTEMS All other systems reviewed and are negative. OBJECTIVE PHYSICAL EXAM Ortho Exam General Appearance: Appears to be their stated age and healthy. Body habitus: Normal. The patient isalert and oriented to person, place, and time. The patient's mood appears good. HEENT: Normocephalic, extraocular movements intact. Respiratory: Respirations are unlabored. Psych: Patient has a normal mood and affect. Extremities: 1st evaluate the left elbow. No erythema ecchymosis muscle atrophy. Mild tenderness over the radial head. She has full extension and flexion as well as pronation and supination. Intact distal neurovascular status. The right elbow also does not demonstrate any remaining swelling. Mild tenderness over the radial head. She does demonstrate full flexion. Just short of full extension with reproduction of pain on extension as well as supination. Intact distal neurovascular status. IMAGING Updated radiographs of both right and left elbows were obtained. Unchanged alignment or positioning of bilateral radial head fractures. Early healing noted. Joint spaces are well maintained. ASSESSMENT / PLAN 1. Bilateral radial head fractures Today we had a lengthy discussion with the patient regarding her elbows. She continues to progress and do well. Range of motion is full on the left, nearly full on the right. Today we did discuss precautions regarding her elbows. We did give her an updated note for [employer]. Physical therapy is ordered. We stressed the importance of a regular home exercise program. She will, however, nowfollow up with us on an as-needed basis. She voiced understanding and agreement this plan. documented in this encounter Plan of Treatment Not on filedocumented as of this encounter Visit Diagnoses Diagnosis Fracture Radius Head Closed Initial Left - Primary documented in this encounter Care Teams Key Entry Operator Relationship Specialty Start Date End Date Elsewhere, Pcp PCP - General Family Medicine 03/28/20 documented as of this encounter
--- OUTSIDE RECORDS SUMMARY | 2022-06-25 16:40 | XMS_ITS | Encounter Summary ---
:1995 Author Organization [facility] Address [address] [place] [address] Care Team Providers Name Role Phone Elsewhere, Pcp Primary Care Provider Unavailable Encounter Details Date Type Department Care Team Description 05/01/2020 Hospital Encounter Department of Damaso Robles Radius Head Radiology, Filiberto Cisneros D.O. Closed Initial [facility], in [address] [place] [phone] [place], [place] [phone] (Work) [phone] Social History Tobacco Use Types Packs/Day Years [...] Not on filedocumented as of this encounter Procedures Procedure Name Priority Date/Time Associated Comments Diagnosis DX ELBOW RIGHT 3+ RAD - Routine 05/01/2020 9:16 Fracture Radius Res ults for this VIEWS (most inpatients AM CDT Head Closed procedure a re in and all Initial Right the results outpatients) section. DX ELBOW LEFT 3+ RAD - Routine 05/01/2020 9:16 Fracture Radius Resu lts for this VIEWS (most inpatients AM CDT Head Closed procedure a re in and all Initial Right the results outpatients) section. documented in this encounter Results DX Elbow Right 3+ Views (05/01/2020 9:16 AM CDT) Anatomical Region Laterality Modality Upper Extremity, Elbow, Musculoskeletal RST LOS, Right Digital Radiography Musculoskeletal ARZ LOS, Muskuloskeletal FLA LOS Specimen (Source) Anatomical Collection Method Collection Time Re ceived Time Location / / Volume Laterality 05/01/2020 9:27 AM CDT Impressions 05/01/2020 9:29 AM CDT Unchanged alignment, impaction fracture of the right radial head. Narrative 05/01/2020 9:29 AM CDT EXAM: DX ELBOW RIGHT 3+ VIEWS COMPARISON: 04/01/2020 FINDINGS: The previously described impac tion fracture of the radial head is poorly visualized on this study, however , there is increasing callus formation along the proximal metaphysis. The fract ure is unchanged in alignment. There are no newly identified fractures or disloca tions Procedure Note Félix Wilder M.D. - 05/01/2020Format ting of this note might be different from the original. EXAM: DX ELBOW RIGHT 3+ VIEWS COMPARISON: 04/01/2020 FINDINGS: The previously described impac tion fracture of the radial head is poorly visualized on this study, however , there is increasing callus formation along the proximal metaphysis. The fract ure is unchanged in alignment. There are no newly identified fractures or disloca tions IMPRESSION: Unchanged alignment, impaction fracture of the right radial head. Damaso [facility] PROCE DREW DX Elbow Left 3+ Views (05/01/2020 9:16 AM CDT) Anatomical Region Laterality Modality Upper Extremity, Elbow, Musculoskeletal RST LOS, Left Digital Radiography Musculoskeletal ARZ LOS, Muskuloskeletal FLA LOS Specimen (Source) Anatomical Collection Method Collection Time Re ceived Time Location / / Volume Laterality 05/01/2020 9:28 AM CDT Impressions 05/01/2020 9:31 AM CDT Three-view left elbow demonstrates mildly impacted fracture neck of the proximal left radius with minimally increased impaction since the prior exam April 01, 2020. Fracture fragments othe rwise in good position and alignment. Narrative 05/01/2020 9:31 AM CDT EXAM: DX ELBOW LEFT 3+ VIEWS Procedure Note Burke Reyes M.D. - 05/01/2020For matting of this note might be different from the original. EXAM: DX ELBOW LEFT 3+ VIEWS IMPRESSION: Three-view left elbow demonstrates mildl y impacted fracture neck of the proximal left radius with minimally increased impaction since the prior exam April 01, 2020. Fracture fragments othe rwise in good position and alignment. Damaso [facility] NOLVIA RUSSELL documented in this encounter Visit Diagnoses Diagnosis Fracture Radius Head Closed Initial Righ t documented in this encounter Care Teams English Faculty Member Relationship Specialty Start Date End Date Elsewhere, Pcp PCP - General Family Medicine 03/28/20 documented as of this encounter
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
--- OUTSIDE RECORDS SUMMARY | 2022-06-25 16:40 | XMS_ITS | Encounter Summary ---
:1995 Author Organization [facility] Address [address] [place] [address] Care Team Providers Name Role Phone Elsewhere, Pcp Primary Care Provider Unavailable Reason for Referral Outpatient (Routine) - Closed Specialty Diagnoses / Procedures Referred By Contact Refer red To Contact Diagnoses Fracture Radius Head Closed Initial Right Damaso Robles D.O. [facility] Procedures cast-splint application [address] [place] [phone] Referral ID Status Reason Start Date Expiration Date Visits Requ ested Visits Authorized [id number] Closed 04/01/2020 04/01/2021 1 1 Outpatient (Routine) - Closed Specialty Diagnoses / Procedures Referred By Contact Refer red To Contact Diagnoses Fracture Radius Head Closed Initial Left Damaso Robles D.O. [facility] Procedures cast-splint application [address] [place] [phone] Referral ID Status Reason Start Date Expiration Date Visits Requ ested Visits Authorized [id number] Closed 04/01/2020 04/01/2021 1 1 Reason for Visit Outpatient (Routine) - Closed Specialty Diagnoses / Procedures Referred By Contact Refer red To Contact Diagnoses Fracture Radius Head Closed Initial Right Fracture Radius Head Closed Initial Left Damaso Robles D.O. [facility] Procedures ORS Cast Room Visit [address] [place] [phone] Referral ID Status Reason Start Date Expiration Date Visits Requ ested Visits Authorized [id number] Closed 04/01/2020 04/01/2021 1 1 Encounter Details Date Type Department Care Team Description 04/01/2020 Procedure visit Department of Damaso Robles D.O. [address] [place] [phone] Fracture Radius Head Closed Initial Righ t; Orthopedic Surgery in [facility] [place] [address] [place] [phone] Fracture Radius Head Closed Initial Left [place], [place] [address] [place] [address] Social History Tobacco Use Types Packs/Day Years Used Date Smoking Tobacco: Heavy Smoker Cigarettes 0.5 Smokeless Tobacco: Never Alcohol Use Standard Drinks/Week Comments Yes 2 (1 standard drink = 0.6 oz pure alcoho l) Sex Assigned at Date Recorded Not on file documented as of this encounter Procedure Notes [facility] - 04/01/2020 9:15 AM CDTAssociated Order(s): cast-splint application Post-Procedure Diagnose(s): Fracture Radius Head Closed Initial Left Cast-splint application Date/Time: 04/01/2020 9:30 AM Performed by: [facility] Authorized by: Damaso Robles D.O. PRE PROCEDURE DETAILS Procedure type: removal Procedure type comment: Splint Performed by: Tech Location: Elbow Elbow: Left elbow POST PROCEDURE DETAILS Procedure completed successfully: yes [facility] [place] - 04/01/2020 9:15 AM CDTAssociated Order(s): cast-splint application Post-Procedure Diagnose(s): Fracture Radius Head Closed Initial Right Cast-splint application Date/Time: 04/01/2020 9:30 AM Performed by: [facility] [place] Authorized by: Damaso Robles D.O. PRE PROCEDURE DETAILS Procedure type: removal Procedure type comment: Splint Performed by: Tech Location: Elbow Elbow: Right elbow POST PROCEDURE DETAILS Procedure completed successfully: yes documented in this encounter Plan of Treatment Not on filedocumented as of this encounter Procedures Procedure Name Priority Date/Time Associated Diagnosis Comme nts SPLINT APPLICATION Routine 04/01/2020 9:15 AM Fracture Radius Head Results for this CDT Closed Initial Right procedu re are in the results section. SPLINT APPLICATION Routine 04/01/2020 9:15 AM Fracture Radius Head Results for this CDT Closed Initial Left procedur e are in the results section. documented in this encounter Results cast-splint application (04/01/2020 9:15 AM CDT) Narrative MMODAL - 04/01/2020 9:15 AM CDT [facility] [place] ? 04/01/2020 10:44 AM Cast-splint application Date/Time: 04/01/2020 9:30 AM Performed by: [facility] [place] Authorized by: Damaso Robles D.O. PRE PROCEDURE DETAILS Procedure type: removal ?? Procedure type comment: ??Splint Performed by: ??Tech Location: ??Elbow Elbow: ??Right elbow POST PROCEDURE DETAILS Procedure completed successfully: yes ?? Damaso Robles D.O. PROCEDURE/MINOR SURGICAL ORD ERABLES Performing Organization Address City/[facility]/ZIP Code Phon e Number MMODAL MMODAL NA cast-splint application (04/01/2020 9:15 AM CDT) Narrative MMODAL - 04/01/2020 9:15 AM CDT [facility] [place] ? 04/01/2020 10:44 AM Cast-splint application Date/Time: 04/01/2020 9:30 AM Performed by: [facility] [place] Authorized by: Damaso Robles D.O. PRE PROCEDURE DETAILS Procedure type: removal ?? Procedure type comment: ??Splint Performed by: ??Tech Location: ??Elbow Elbow: ??Left elbow POST PROCEDURE DETAILS Procedure completed successfully: yes ?? Damaso Robles D.O. PROCEDURE/MINOR SURGICAL ORD ERABLES Performing Organization Address City/State/ZIP Code Phon e Number MMODAL MMODAL NA documented in this encounter Visit Diagnoses Diagnosis Fracture Radius Head Closed Initial Righ t Fracture Radius Head Closed Initial Left documented in this encounter Care Teams [employer] Dean Relationship Specialty Start Date End Date Elsewhere, Pcp PCP - General Family Medicine 03/28/20 documented as of this encounter
--- OUTSIDE RECORDS SUMMARY | 2022-06-25 16:40 | XMS_ITS | Encounter Summary ---
:1995 Author Organization [facility] Address [address] [place] [address] Care Team Providers Name Role Phone Elsewhere, Pcp Primary Care Provider Unavailable Encounter Details Date Type Department Care Team Description 04/01/2020 Hospital Encounter Department of Damaso Robles Radius Head Closed Initial Right; Radiology, Filiberto Cisneros D.O. Fracture Radius Head Closed Initial Left [facility], in [address] [place] [phone] [place], [place] [phone] (Work) [phone] Social History Tobacco Use Types Packs/Day Years [...] Priority Date/Time Associated Comments Diagnosis DX ELBOW RAD - Routine 04/01/2020 9:56 Fracture Radius Results for this BILATERAL 3+ (most inpatients AM CDT Head Closed procedure a re in VIEWS and all Initial Right the results outpatients) Fracture Radius section. Head Closed Initial Left documented in this encounter Results DX Elbow Bilateral 3+ Views (04/01/2020 9:56 AM CDT) Anatomical Region Laterality Modality Upper Extremity, Elbow, Musculoskeletal RST LOS, Bilateral Digital Radiography Musculoskeletal ARZ LOS, Muskuloskeletal FLA LOS Specimen (Source) Anatomical Collection Method Collection Time Re ceived Time Location / / Volume Laterality 04/01/2020 10:46 AM CDT Impressions 04/01/2020 10:48 AM CDT No change in minimally displaced bilater al radial head fractures. Narrative 04/01/2020 10:48 AM CDT EXAM: DX ELBOW BILATERAL 3+ VIEWS COMPARISON: 03/26/2020. FINDINGS: There are small elbow joint ef fusions bilaterally as evidenced by elevation of the anterior fat pad. There is no change in appearance or alignment of the minimally displaced radial head f ractures bilaterally. No additional fractures identified. Elbow joint spaces are preserved. Procedure Note Stuart Ashton Jr., M.D. - 2019 EXAM: DX ELBOW BILATERAL 3+ VIEWS COMPARISON: 03/26/2020. FINDINGS: There are small elbow joint ef fusions bilaterally as evidenced by elevation of the anterior fat pad. There is no change in appearance or alignment of the minimally displaced radial head f ractures bilaterally. No additional fractures identified. Elbow joint spaces are preserved. IMPRESSION: No change in minimally displaced bilater al radial head fractures. Damaso [facility] NOLVIA RUSSELL documented in this encounter Visit Diagnoses Diagnosis Fracture Radius Head Closed Initial Righ t Fracture Radius Head Closed Initial Left documented in this encounter Care Teams Federal Mediator Relationship Specialty Start Date End Date Elsewhere, Pcp PCP - General Family Medicine 03/28/20 documented as of this encounter
--- OUTSIDE RECORDS SUMMARY | 2022-06-25 16:41 | XMS_ITS | Encounter Summary ---
:1995 Author Organization [facility] Address [address] [place] [address] Care Team Providers Name Role Phone Unavailable Primary Care Provider Unavailable Encounter Details Date Type Department Care Team Description 12/07/2018 Clinical Communication [facility], Pcp Family Medicine and Residency in [place], [place] [address] [place] [phone] Social History Tobacco Use Types Packs/Day Years Used Date Smoking Tobacco: Heavy Smoker Cigarettes 0.5 Smokeless Tobacco: Never Alcohol Use Standard Drinks/Week Comments Yes 2 (1 standard drink = 0.6 oz pure alcoho l) Sex Assigned at Date Recorded Not on file documented as of this encounter Miscellaneous Notes Telephone Encounter - Romana Gr - 12/07/2018 9:51 AM CDT Patient does not have a PCP with [facility]. Patient will need to establish care with a primary provider. Once that has been done. They will then submit the referral for .. documented in this encounter Plan of Treatment Not on filedocumented as of this encounter Visit Diagnoses Not on filedocumented in this encounter
--- OUTSIDE RECORDS SUMMARY | 2022-06-25 16:41 | XMS_ITS | Encounter Summary ---
:1995 Author Organization [facility] Address [address] [place] [address] Care Team Providers Name Role Phone Unavailable Primary Care Provider Unavailable Reason for Visit Reason Comments Anxiety pt's brother just passed rogers y hours ago, pt unable to leave this area right away to be with family, work s 2 jobs Encounter Details Date Type Department Care Team Description 12/02/2018 Emergency [facility] Luisa Null Anxi ety (Primary Dx) [facility] Emergency SCHOOL SPEECH LANGUAGE PATHOLOGIST, C.N.P., Department M.S.N. [address] [place] [address] [id number] [place], [place] [phone] (Wo rk) Social History Tobacco Use Types Packs/Day Years Used Date Smoking Tobacco: Heavy Smoker Cigarettes 0.5 Smokeless Tobacco: Never Alcohol Use Standard Drinks/Week Comments Yes 2 (1 standard drink = 0.6 oz pure alcoho l) Sex Assigned at Date Recorded Not on file documented as of this encounter Last Filed Vital Signs Vital Sign Reading Time Taken Comments Blood Pressure 120/88 12/02/2018 2:30 AM CDT Pulse 98 12/02/2018 2:45 AM CDT Temperature 36.8 ??C (98.2 ??F) 12/02/2018 1:17 AM CDT Respiratory Rate 22 12/02/2018 1:17 AM CDT Oxygen Saturation 97% 12/02/2018 2:45 AM CDT Inhaled Oxygen Concentration - - Weight 57.8 kg (127 lb 6.8 oz) 12/02/2018 1:18 AM CDT Height - - Body Mass Index - - documented in this encounter Discharge Instructions AttachmentsThe following attachments cannot be sent through Care Everywhere. Coping With Your Loss and Grief (Frisian)documented in this encounter Medications at Time of Discharge Medication Sig Dispensed Refills Start Date End Date LORazepam (ATIVAN) 1 mg Take 1 tablet (1 mg 9 tablet 0 09/2018 tablet total) by mouth 3 (three) times a day as needed for anxiety for up to 3 days. documented as of this encounter Progress Notes Riya Hernandez L.I.C.S.W. - 12/02/2018 2:55 AM CDT SUBJECTIVE Patient is a 23 year old single woman who presented to the [facility] Emergency Department this evening with concerns anxiety. Dentures Lab Technician was consulted by Silvino Null APRN, SOLE LEVELER, MSN, to offer a supportive visit to patient as she revealed that her brother was recently found due to an unknown cause. Dentures Lab Technician met with patient offer emotional support and she was welcoming this visit. She stated that her younger brother, Jeremías age 21, was found near his home in the [facility] earlier today. She was informed of this by her father who lives in [place]. She stated that she spoke with her brother he then earlier in the day yesterday and there were no concerns about his welfare at that time. She has plans to travel to [place] later today with her boyfriend to be with her father. Patient reports a history of generalized anxiety disorder but she is not currently utilizing any medication for this. Her primary care provider is Dr. Huerta of the [facility], but she has not discussed her experiences with anxiety with this provider; patient stated that she plans to schedule an appointment with this provider soon to discuss her concerns. OBJECTIVE History reviewed. No pertinent past medical history. Patient engaged with advertising copywriter during our brief conversation. She was receptive to validation about herrecent feelings after learning that her young and healthy brother was found with unknown circumstances. She is interested in engaging in outpatient mental health care, but at this point in time her priority is focus on her family's welfare. ASSESSMENT / PLAN ASSESSMENT Orientation: Oriented to person, place and time Level of consciousness: Awake and alert Appearance: Age appearing Behavior observed: Calm and Tearful Memory: Good based on conversation Estimated intellectual functioning: Above average for developmental level Status of concentration: Good based on participation in conversation Cooperation: Cooperative Mood: Anxious, Overwhelmed and Sad Affect: Mood-congruent Speech: Within normal limits for volume, rate and tone. Thought process: Logical, linear, and goal-directed Thought content, auditory/visual hallucinations and/or delusions: No abnormality noted Judgement: Grossly intact based on presentation to the emergency department due to symptoms of anxiety. Insight: Grossly intact based on awareness of recent anxious symptoms and the impact of her brother's recent on these symptoms. Motivation for treatment: Adequate Safety: no current safety concerns noted. INTERVENTIONS 1. Met with patient to provide emotional support. PLAN 1. Patient will be discharged from the emergency department with her boyfriend this morning. 2. Patient plans to follow up with her primary care provider to discuss options for management of anxiety symptoms. PATIENT/FAMILY EDUCATION Patient educational needs assessed: ready to learn with no apparent learning barriers. Education on treatment plan provided according to patient???s preferred learning style. Patient expressed understanding of the information provided and expressed the intention, except where otherwise noted, to follow through with the recommendations. Family educational needs assessed: ready to learn with no apparent learning barriers. Education on treatment plan provided according to family???s preferred learning style. Family expressed understanding of the information provided and expressed the intention, except where otherwise noted, to follow through with the recommendations. Phillip HollowaySJv. 12/02/2018 documented in this encounter ED Notes Luisa Null APRN, C.N.P., M.S.N. - 12/02/2018 1:33 AM CDT SUBJECTIVE CHIEF COMPLAINT/REASON FOR VISIT Anxiety (pt's brother just hours ago, pt unable to leave this area right away to be withfamily, works 2 jobs) HISTORY OF PRESENT ILLNESS Snehal Bryant is a 23 y.o. female with no significant past medical history who presents from home to the Emergency Department by private vehicle for evaluation of anxiety. she states she was speaking with her father at dinner as she normally does. When he called her back and notifying her that paul was found in [place]. She states she received these use few hours ago in has not been able to received the news well. She states she lives in [place] and works 2 jobs working an average of 70 hours a week. She states she is working this hard in order to save and get out of debt. She states ???I do not know why I came here but this is the only place I could think of. She denies fevers, chills, abdominal pain, nausea,vomiting, chest pain, shortness of breath, dysuria. She states she is not on any medications. She states she is a current smoker. REVIEW OF SYSTEMS Constitutional: Negative. HENT: Negative. Respiratory: Negative. Cardiovascular: Negative. Gastrointestinal: Negative. Endocrine: Negative. Genitourinary: Negative. Musculoskeletal: Negative. Skin: Negative. Neurological: Negative. Psychiatric/Behavioral: The patient is nervous/anxious. All other systems reviewed and are negative. OBJECTIVE Initial Vitals [12/02/18 0117] Temperature Pulse Heart Rate Resp Rate Blood Pressure SpO2 36.8 ??C -- (!) 118 22 (!) 137/100 100 % Pain Score 0 - No pain PHYSICAL EXAMINATION HENT: Head: Atraumatic. Mouth/Throat: Oropharynx is clear and moist. Eyes: Conjunctivae and EOM are normal. Pupils are equal, round, and reactive to light. Neck: Normal range of motion. Neck supple. No tracheal deviation present. Cardiovascular: Regular rhythm. Tachycardia present. Capillary refill: takes less than 3 seconds, Edema: no edema noted Pulmonary/Chest: Effort normal and breath sounds normal. Abdominal: Soft. She exhibits no distension. There is no tenderness. Neurological: She is alert and oriented to person, place, and time. Skin: Skin is warm and dry. She is not diaphoretic. Psychiatric: Her mood appears anxious. Her affect is tearful. She expresses no homicidal and no suicidal ideation. Nursing note and vitals reviewed. ASSESSMENT/PLAN MDM: The patient is a 23 y.o. female who presents to the emergency department with anxiety. She is tachycardic, although does not appear to be in acute distress. she is tearful and appears, anxious and nervous. I do not think there is a toxidrome occurring at this time or any other acute process. She denies a review of systems and her physical exam is unremarkable. she denies suicidal homicidal ideation. They performed an ECG due to her heart rate. ECG is sinus tach at a rate of 110. No ST elevations with a QTC of 408. No previous ECG to compare to. Patient has received 1 mg of Ativan while the emergency department. At reassessment, she states she feels less anxious but still feels the of her brother is surreal. I have had social work come and evaluate her in order to provide other resources. We have discussed grieving, creating a plan and next steps. She has received a work note, symptom management, Ativan as needed, when to return precautions, follow-up instructions, discharge instructions. I have placed a referral for behavior health. Patient feels comfortable returning home. Patient remained stable in the ED. All questions were answered. Indications to return to the emergency department were discussed with the patient. She has verbalized understanding and agrees to the plan. MEDICATIONS ADMINISTERED: Medications LORazepam tablet 1 mg (ATIVAN) (1 mg oral Given 12/02/18 0141) IMAGING: No orders to display LAST VITALS: Vitals: 12/02/18 0130 BP: 140/90 Pulse: (!) 121 Resp: Temp: SpO2: 100% Final Diagnoses: as of Dec 03 247 Anxiety DISPOSITION: Discharge. Routine return precautions discussed in everyday language. Consults and Follow-ups to Schedule POST ED VISIT Behavioral Health December 02, 2018 (Approximate) Region: [facility] ED Visit F/U Specialty?: Behavioral Health Contact Information for Follow-ups [facility] Next Steps: Follow up Questions: Region: [facility] ED Visit F/U Specialty?: Behavioral Health Referral Status: Authorized [facility] Emergency Department Specialty: Emergency Medicine [facility] [facility] [id number] Next Steps: Follow up Instructions: As needed, If symptoms worsen Medications prescribed for after the encounter: ED Prescriptions Medication Sig Dispense Start Date End Date Auth. Provider LORazepam (ATIVAN) 1 mg tablet Take 1 tablet (1 mg total) by mouth 3 (three) times a day as needed for anxiety for up to 3 days. 9 tablet 12/02/2018 12/05/2018 Luisa Null APRN, C.N.P., M.S.N. Reviewed and summarized previous medical records including: Documentation from previous visits. Final Diagnoses: as of Dec 03 247 Anxiety Luisa Null APRN, C.N.P., M.S.N. 12/02/18 0307 documented in this encounter Plan of Treatment Not on filedocumented as of this encounter Procedures Procedure Name Priority Date/Time Associated Diagnosis Comme nts ECG STAT 12/02/2018 2:02 AM Results f or this CDT procedure are i n the results section . documented in this encounter Results ECG 12 Lead (12/02/2018 2:02 AM CDT) P athologist Signature Ventricular Rate 110 BPM MUSE ECG/Min AL Interval 114 ms MUSE QRSD Interval 92 ms MUSE QT Interval 302 ms MUSE QTC Interval 408 ms MUSE P [place] 70 degrees MUSE R [place] 69 degrees MUSE T Wave [place] 41 degrees MUSE Specimen Anatomical Collection Method Collection Time Receive d Time (Source) Location / / Volume Laterality 12/02/2018 2:02 AM 9 5:31 CDT AM CDT Impressions MUSE - 12/02/2018 5:31 AM CDT Sinus tachycardia Premature supraventricular complexes Nonspecific T wave abnormality No previous ECGs available Narrative This result has an attachment that is no t available. Procedure Note Luciano Schwarz M.D. - 12/02/2018Fo rmatting of this note might be different from the original. IMPRESSION: Sinus tachycardia Premature supraventricular complexes Nonspecific T wave abnormality No previous ECGs available Luisa Null APRN, C.N.P., M.S.N. ECG ORDERABLES Performing Organization Address City/State/ZIP Code Phon e Number MUSE MUSE NA documented in this encounter Visit Diagnoses Diagnosis Anxiety - Primary documented in this encounter Administered Medications Inactive Administered Medications - up to 3 most recent administrations Medication Order MAR Action Action Date Dose Rate Site LORazepam tablet 1 mg (ATIVAN) Given 12/02/2018 1:41 AM CDT 1 mg 1 mg, oral, Once, On Wed12/02/18 at 0134, For 1 dose documented in this encounter Active and Recently Administered Medications Times are shown in CDT. Scheduled Medication Order 11/30/2018 12/01/2018 12/02/2018 LORazepam tablet 1 mg (ATIVAN) (COMPLETED) 0141 (Given - Provider: Damaso Vaughn R.N.) 1 mg, oral, Once, On Wed12/02/18 at 0134, For 1 dose documented in this encounter
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
--- OUTSIDE RECORDS SUMMARY | 2022-06-25 16:42 | XMS_ITS | Clinical Summary ---
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 05/08/2022 NEW ULM 5.20 6:32 AM [facility]ENTER mil/cu mm HEMOGLOBIN 13.2 12.0 - 05/08/2022 NEW ULM 16.0 g/dL 6:32 AM [facility] HEMATOCRIT 40.0 33.0 - 05/08/2022 NEW ULM 51.0 % 6:32 AM [facility] MCV 93 80 - 100 05/08/2022 NEW [facility] fL 6:32 AM [facility] MCH 30.8 26.0 - 05/08/2022 NEW ULM 34.0 pg 6:32 AM [facility] MCHC 33.0 32.0 - 05/08/2022 NEW ULM 36.0 g/dL 6:32 AM [facility] RDW 11.9 11.5 - 05/08/2022 NEW ULM 15.5 % 6:32 AM [facility] PLATELET COUNT 398 140 - 440 05/08/2022 NEW ULM thou/cu mm 6:32 AM [facility] MPV 9.5 6.5 - 11.0 05/08/2022 NEW [facility] fL 6:32 AM [facility] NRBC 0.0 % 05/08/2022 NEW ULM 6:32 AM [facility] [place] ABS NRBC 0.0 thou /cu 05/08/2022 NEW ULM mm 6:32 AM [facility] % NEUT 68.2 % 05/08/2022 NEW [facility]LM 6:32 AM [facility] [place] % LYMPH 20.5 % 05/08/2022 NEW [facility] 6:32 AM [facility] [place] % MONO 8.8 % 05/08/2022 NEW [facility] 6:32 AM [facility] [place] % EOS 1.5 % 05/08/2022 NEW [facility] 6:32 AM [facility] [place] % BASO 0.7 % 05/08/2022 NEW [facility] 6:32 AM [facility] [place] % IMMATURE GRAN 0.3 % 05/08/2022 [facility] (METAS,[place]OS,[place] 6:32 AM [facility] [address] [facility]) ABSOLUTE 4.0 1.7 - 7.0 05/08/2022 [facility] NEUTROPHILS thou/cu mm 6:32 AM CDT [facility] ABSOLUTE 1.2 0.9 - 2.9 05/08/2022 [facility] LYMPHOCYTES thou/cu mm 6:32 AM [facility]T [facility] ABSOLUTE 0.5 <0.9 05/08/2022 [facility] MONOCYTES thou/cu mm 6:32 AM [facility]T [facility] ABSOLUTE 0.1 <0.5 05/08/2022 [facility] EOSINOPHILS thou/cu mm 6:32 AM [facility]T [facility] ABSOLUTE 0.0 <0.3 05/08/2022 [facility] BASOPHILS thou/cu mm 6:32 AM [facility]T [facility] ABSOLUTE 0.0 <0.3 05/08/2022 [facility] IMMATURE thou/cu mm 6:32 AM CDT [facility] GRANULOCYTES(MET ,MYELOS,PROS) Specimen Anatomical Collection Method / Collection Time Recei ruthie Time (Source) Location / Volume Laterality Blood BLOOD SPECIMEN / Venipuncture / 05/08/2022 6:04 2021 6:26 Unknown Unknown AM CDT AM CDT Richard Bello MD HEMATOLOGY Performing Organization Address City/State/ZIP Code Phon e Number [facility] [address] [place] [address] [facility] [address] [place] [address] (ABNORMAL) TSH (05/07/2022 7:39 AM CDT) P athologist Signature TSH 6.29 (H) 0.35 - 4.94 05/07/2022 [place] uIU/mL 8:24 AM CDT [facility] Specimen Anatomical Collection Method / Collection Time Recei ruthie Time (Source) Location / Volume Laterality Blood BLOOD SPECIMEN / Venipuncture / 05/07/2022 7:39 2021 7:43 Unknown Unknown AM CDT AM CDT Narrative [facility] - 05/07/2022 8:24 AM CDT In Adults, TSH values between 5.00 and 10.00 uIU/ml do not necessarily indicate the presence of Hyp othyroidism. Correlation with clinical findings such as presence of goiter and/or Thyroperoxidase (TPO) Antibody con y be helpful. For more information please refer to [facility] 20 04; 291: 228-238. Richard Bello MD CHEMISTRY Performing Organization Address City/State/ZIP Code Phon e Number [facility] [address] [facility] [place] [address] [facility] [address] [facility] [place] [address] T4,FREE (05/07/2022 7:39 AM CDT) athologist Signature T4,FREE 0.90 0.70 - 1.80 05/07/2022 [facility] ng/dL 7:02 PM CDT CENTER Specimen Anatomical Collection Method / Collection Time Recei ruthie Time (Source) Location / Volume Laterality Blood BLOOD SPECIMEN / Venipuncture / 05/07/2022 7:39 2021 7:43 Unknown Unknown AM CDT AM CDT Richard Bello MD CHEMISTRY Performing Organization Address City/[facility]/ZIP Code Phon e Number [facility] [address] [facility] [place] [address] [facility] [address] [place] [address] FOLIC ACID (05/07/2022 7:39 AM CDT) athologist Signature FOLIC ACID 17.3 >=4.0 ng/mL 05/08/2022 [facility] 9:55 AM CDT LABORATORY-[facility] Specimen Anatomical Collection Method / Collection Time Recei ruthie Time (Source) Location / Volume Laterality Blood BLOOD SPECIMEN / Venipuncture / 05/07/2022 7:39 2021 7:42 Unknown Unknown AM CDT AM CDT Narrative [facility] - 05/08/2022 9:55 AM CDT <4.0 ng/mL suggest folate deficiencies Richard Bello MD CHEMISTRY Performing Organization Address City/State/ZIP Code Phon e Number [facility] [address] [place] [address] LABORATORY-[facility]EN[facility] LABORATORY (ABNORMAL) VITAMIN B12 (05/07/2022 7:39 AM CDT) athologist Signature VITAMIN B12 135 (L) 180 - 914 05/08/2022 [facility] pg/mL 10:36 AM CDT LABORATORY-[facility] Specimen Anatomical Collection Method / Collection Time Recei ruthie Time (Source) Location / Volume Laterality Blood BLOOD SPECIMEN / Venipuncture / 05/07/2022 7:39 2021 7:42 Unknown Unknown AM CDT AM CDT Richard Bello MD CHEMISTRY Performing Organization Address City/State/ZIP Code Phon e Number [facility] [address] [place] [address] LABORATORY-[facility]ENTR[facility] [address] LABORATORY (ABNORMAL) DRUG ABUSE SCREEN RAPID URINE (05/06/2022 4:59 PM CDT) [facility] Method Time Signature THC Presumptive Not 05/06/2022 [place] METABOLITES,QU Positive-Uncon Detected 5:18 PM CDT HOSPITAL AL firmed Result (A) PCP,QUAL Not Detected Not 05/06/2022 [place] Detected 5:18 PM CDT HOSPITAL COCAINE,QUAL Not Detected Not 05/06/2022 [place] Detected 5:18 PM CDT HOSPITAL METHAMPHETAMIN Not Detected Not 05/06/2022 [place] E, QUALITATIVE Detected 5:18 PM CDT HOSPITAL OPIATES,QUAL Not Detected Not 05/06/2022 [place] Detected 5:18 PM CDT HOSPITAL AMPHETAMINE, Not Detected Not 05/06/2022 [place] QUALITATIVE Detected 5:18 PM CDT HOSPITAL BENZODIAZEPINE Not Detected Not 05/06/2022 [place] S,QUAL Detected 5:18 PM CDT HOSPITAL TRICYCLICS,BIMAL Not Detected Not 05/06/2022 [place] L Detected 5:18 PM CDT HOSPITAL METHADONE, Not Detected Not 05/06/2022 [place] QUALITATIVE Detected 5:18 PM CDT HOSPITAL BARBITURATES,Q Not Detected Not 05/06/2022 [place] UAL Detected 5:18 PM CDT HOSPITAL OXYCODONE, Not Detected Not 05/06/2022 [place] QUALITATIVE Detected 5:18 PM CDT HOSPITAL BUPRENORPHINE, Not Detected Not 05/06/2022 [place] QUALITATIVE Detected 5:18 PM CDT HOSPITAL PROPOXYPHENE,Q Not Detected Not 05/06/2022 [place] UAL Detected 5:18 PM CDT HOSPITAL Specimen Anatomical Collection Method Collection Time Receive d Time (Source) Location / / Volume Laterality Urine URINE SPECIMEN / Non-Blood / 05/06/2022 4:59 PM 05/06 5:02 Unknown Unknown CDT PM CDT Narrative [facility] - 05/06/2022 5:18 PM C DT Please Note: ?? This is a screening test only, all resul ts are Unconfirmed and should be used for medical purposes only . ??Unconfirmed results must not be used for non-medical purpose s (e.g., employment testing, legal testing). ??Suggest dg te specific confirmation for all presumptive positive results. ?? Specimens will be held for 24 hours if additional testing is needed . ?? The following threshold concentrations a re used for this analysis: ? Drug ? Screening Threshold ? Buprenorphine ? 10 ng/mL PCP ? 25 ng/mL ?? THC Metabolites ? 50 ng/mL *Opiates ? 100 ng/mL Oxycodone ?100 ng/mL Cocaine ?150 ng/mL Benzodiazepines ?150 ng/mL ?? Methadone ?200 ng/mL ?? Barbiturates ? 200 ng/mL Propoxyphene ? 300 ng/mL Tricyclic Antidepressants ? 300 ng/mL ?? Amphetamines ? 500 ng/mL ?? Methamphetamines ? 500 ng/mL ?*Includes related compounds: ? Codeine ?50 ng/mL ? Heroin ?100 ng/mL ? Morphine ?100 ng/mL ? Hydrocodone ? 400 ng/mL ? Hydromorphone ? 800 ng/mL ?Venlafaxine (Effexor) is a known cr oss reactant in the PCP ?assay. ??If clinically indicated, order PCP confirmation. Brayan Waddell III, MD URINE Performing Organization Address City/[facility] [address] [phone] URINE (05/06/2022 4:59 PM CDT) athologist Signature ,URIN Negative Negative 05/06/2022 [facility] 5:07 PM CDT HOSPITAL Specimen Anatomical Collection Method Collection Time Receive d Time (Source) Location / / Volume Laterality Urine URINE SPECIMEN / Non-Blood / 05/06/2022 4:59 PM 05/06 5:02 Unknown Unknown CDT PM CDT Brayan Waddell III, MD URINE Performing Organization Address [facility] [address] [phone] COVID 19 (05/06/2022 3:11 PM CDT) [facility] Method Time Signature COVID 19 Not detected Not detected 05/06/2022 [facility] 3:34 PM CDT HOSPITAL MOLECULAR Specimen Anatomical Location / Collection Method Collection Nino e Received Time (Source) Laterality / Volume Other SPECIMEN FROM Non-Blood / 05/06/2022 3:11 05/06/2022 3:13 NASOPHARYNGEAL Unknown PM CDT PM CDT STRUCTURE / Unknown Narrative [facility] - 05/06/2022 3:34 PM C DT This test has been authorized by FDA und er an Emergency Use Authorization (EUA). This test is only authorized for the duration of time the declaration that circumstances exist justifying the authorization of th e emergency use of in vitro diagnostic tests for detection of SARS-CoV-2 virus and/or diagnosis of COVID-19 infection under section 564(b)(1) of the Act, 21 U.S.C. 360bbb-3(b) (1), unless the authorization is terminated or revoked sooner. Brayan Waddell III, MD MICROBIOLOGY Performing Organization Address [facility] Phon e Number [facility] [address] [phone] COVID 19 COLLECTION (05/06/2022 3:11 PM CDT) [facility] TESTING [facility] 05/06/2022 [facility] 3:13 PM CDT HOSPITAL Comment: Specimen submitted to [facility] for testing. Specimen Anatomical Location / Collection Method Collection Nino e Received Time (Source) Laterality / Volume Other SPECIMEN FROM Non-Blood / 05/06/2022 3:11 05/06/2022 3:13 NASOPHARYNGEAL Unknown PM CDT PM CDT STRUCTURE / Unknown Brayan Waddell III, MD SEND OUTS Performing Organization Address [facility] Phon e Number [facility] [address] [phone] from Last 3 Months Insurance Payer Benefit Plan / Subscriber ID Effective Dates Phone Addre ss Type Group FRANCO MONROE [id number] 2021-Present [employer]/ [address] [place] [address] [phone] (Home) [place] [id number] Advance Directives Latest Code Status on File Code Status Date Activated Date Inactivated Comments Full Code 05/07/2022 5:50 AM 05/09/2022 3:37 PM Code Status Discussion: Reviewed Preferences Care Teams [employer] Relationship Specialty Start Date End Date Staff, Other Clinical PCP - General 05/06/22 .
== END 2022-06-25 17:03 | disposition home or self-care (01) ==
PROVIDERS: Emergency Provider Family Medicine
DX: N39.0 Urinary tract infection, site not specified (principal)
CPT/HCPCS: 99282; 99283; 99284